=== PATIENT | female | born 1950 | race Caucasian/White ===

== ENCOUNTER 2019-11-03 06:40 | Emergency (ER) | payer MEDICARE, BC ==
[~2019-11-03] VITALS: Ht 154.9 cm; Wt 57.7 kg
[2019-11-03] MEDS ORDERED: aspirin 81mg tab.chew PO ONE (06:45)
[2019-11-03 07:32] LABS: BASOPHILS % (AUTO) 0.6 % (0-1); EOSINOPHILS # (AUTO) 0.4 X10'3 (0-0.9); EOSINOPHILS % (AUTO) 7.3 % (0-6); LYMPHOCYTES # (AUTO) 1.9 X10'3 (1.1-4.8); LYMPHOCYTES % (AUTO) 33.6 % (21-51); MEAN CORPUSCULAR HEMOGLOBIN 32.6 PG (27.0-31.0); MEAN CORPUSCULAR VOLUME 95.8 FL (78-98); MONOCYTES # (AUTO) 0.4 X10'3 (0-0.9); MONOCYTES % (AUTO) 6.7 % (2-12); NEUTROPHILS % (AUTO) 51.8 % (42-75); PLATELET COUNT 300 X10'3 (140-440); RED CELL DISTRIBUTION WIDTH 13.5 % (11.5-14.5); WHITE BLOOD COUNT 5.7 X10'3 (4.5-11.0)
[2019-11-03 07:47] LABS: ALANINE AMINOTRANSFERASE 31 U/L (12-78); ALBUMIN/GLOBULIN RATIO 1.3 (1.1-1.5); ALKALINE PHOSPHATASE 45 IU/L (46-116); ANION GAP 10 (8-16); ASPARTATE AMINO TRANSFERASE 18 U/L (10-37); BILIRUBIN,TOTAL 0.6 MG/DL (0.1-1.0); BLOOD UREA NITROGEN 9 MG/DL (7-18); BUN/CREATININE RATIO 13.4 (6.6-38.0); CALCIUM 10.4 MG/DL (8.5-10.1); CHLORIDE 104 MMOL/L (99-107); CREATININE 0.67 MG/DL (0.40-0.90); GLUCOSE 102 MG/DL (70-104); SODIUM 140 MMOL/L (135-145); TOTAL CARBON DIOXIDE 26.2 MMOL/L (24-32); eGFR 87 ML/MIN
[2019-11-03 07:55] LABS: MAGNESIUM 2.1 MG/DL (1.5-2.4)
[2019-11-03 08:08] VITALS: BP 152/82
== END 2019-11-03 10:39 | disposition home or self-care (01) ==
LOC: ER 06:40
DX: M54.9 Dorsalgia, unspecified (principal); M25.511 Pain in right shoulder; M25.512 Pain in left shoulder; G43.909 Migraine, unspecified, not intractable, without status migrainosus; I25.10 Atherosclerotic heart disease of native coronary artery without angina pectoris; I25.2 Old myocardial infarction; Z90.49 Acquired absence of other specified parts of digestive tract; Z90.710 Acquired absence of both cervix and uterus; Z88.5 Allergy status to narcotic agent; Z79.899 Other long term (current) drug therapy
CPT/HCPCS: 36415; 71045; 80053; 83735; 83880; 84484; 85025; 93005; 99285

== ENCOUNTER 2023-12-28 06:20 | Emergency (ER) | payer MEDICARE, BC ==
[~2023-12-28] VITALS: Ht 154.9 cm; Wt 56.8 kg
[2023-12-28 06:25] VITALS: TEMP 98.5
[2023-12-28 08:04] LABS: BASOPHILS % (AUTO) 0.4 % (0-1); EOSINOPHILS # (AUTO) 0.1 X10'3 (0-0.9); HEMATOCRIT 39.4 % (35.0-45.0); LYMPHOCYTES % (AUTO) 14.4 % (21-51); MEAN CORPUSCULAR HEMOGLOBIN 31.2 PG (27.0-31.0); MEAN CORPUSCULAR HGB CONC 32.9 g/dL (33.0-36.5); MEAN CORPUSCULAR VOLUME 94.8 FL (78-98); MEAN PLATELET VOLUME 7.9 FL (7.4-10.4); MONOCYTES # (AUTO) 0.3 X10'3 (0-0.9); MONOCYTES % (AUTO) 4.1 % (2-12); NEUTROPHILS # (AUTO) 5.5 X10'3 (1.8-7.7); NEUTROPHILS % (AUTO) 80.1 % (42-75); PLATELET COUNT 272 X10'3 (140-440); RED BLOOD COUNT 4.16 X10'6 (4.20-5.60); RED CELL DISTRIBUTION WIDTH 14.6 % (11.5-14.5); WHITE BLOOD COUNT 6.8 X10'3 (4.5-11.0)
[2023-12-28 08:14] LABS: APTT 26 SECONDS (22-32); PROTHROMBIN TIME 10.9 SECONDS (9.0-12.0)
[2023-12-28 08:21] LABS: ALBUMIN 3.6 G/DL (3.4-5.0); ANION GAP 7 (8-16); BLOOD UREA NITROGEN 12 MG/DL (7-18); BUN/CREATININE RATIO 16.2 (10.0-20.0); CALCIUM 8.9 MG/DL (8.5-10.1); CHLORIDE 105 MMOL/L (99-107); CREATININE 0.74 MG/DL (0.40-0.90); GLUCOSE 101 MG/DL (70-104); POTASSIUM 3.9 MMOL/L (3.5-5.1); PRO BRAIN NATRIURETIC PEPTIDE 83 PG/ML (0-450); SODIUM 138 MMOL/L (135-145); TOTAL CARBON DIOXIDE 26.4 MMOL/L (24-32); eCRCL 50 ML/MIN; eGFR 77 ML/MIN
[2023-12-28] MEDS ORDERED: iohexol 350MG/ML 100ml bottle IV ONE (08:27)
[2023-12-28] MEDS: normal saline 1000ml 1,000 ML IV SCH (08:54)
[2023-12-28 09:48] VITALS: BP 125/86; PULSE 67; RESP 17; O2SAT 98
== END 2023-12-28 09:50 | disposition home or self-care (01) ==
LOC: ER 06:20
DX: H53.8 Other visual disturbances (principal); I25.10 Atherosclerotic heart disease of native coronary artery without angina pectoris; I25.2 Old myocardial infarction; Z90.710 Acquired absence of both cervix and uterus; Z90.49 Acquired absence of other specified parts of digestive tract; Z88.5 Allergy status to narcotic agent
CPT/HCPCS: 36415; 70498; 80048; 83880; 85025; 85610; 85730; 93005; 93880; 96360; 99284; J7030; Q9967

== ENCOUNTER 2024-02-17 10:15 | Emergency (ER) | payer MEDICARE, BC ==
[~2024-02-17] VITALS: Ht 154.9 cm; Wt 60.0 kg
[2024-02-17 10:25] VITALS: TEMP 98
[2024-02-17 11:03] LABS: BILIRUBIN,URINE NEGATIVE (Neg); CLARITY,URINE CLEAR (Clear); COLOR,URINE YELLOW (Yellow); GLUCOSE, URINE NEGATIVE (Neg); KETONES,URINE NEGATIVE (Neg); LEUKOCYTE ESTERASE ,URINE NEGATIVE (Neg); NITRITES, URINE NEGATIVE (Neg); OCCULT BLOOD,URINE NEGATIVE (Neg); PH,URINE 7.5 (4.8-8.0); PROTEIN,URINE NEGATIVE (Neg); UROBILINOGEN,URINE 0.2 E.U/dL (0.2-1.0)
[2024-02-17 11:07] LABS: UA COLLECTION TYPE CLN CATCH MIDSTREAM
[2024-02-17 11:25] LABS: BASOPHILS % (AUTO) 0.6 % (0-1); EOSINOPHILS # (AUTO) 0.2 X10'3 (0-0.9); EOSINOPHILS % (AUTO) 2.2 % (0-6); HEMATOCRIT 44.4 % (35.0-45.0); HEMOGLOBIN 14.9 g/dl (12.0-16.0); LYMPHOCYTES # (AUTO) 1.9 X10'3 (1.1-4.8); LYMPHOCYTES % (AUTO) 22.5 % (21-51); MEAN CORPUSCULAR HEMOGLOBIN 32.2 PG (27.0-31.0); MEAN CORPUSCULAR HGB CONC 33.5 g/dL (33.0-36.5); MEAN CORPUSCULAR VOLUME 96.1 FL (78-98); MEAN PLATELET VOLUME 8.6 FL (7.4-10.4); MONOCYTES # (AUTO) 0.4 X10'3 (0-0.9); MONOCYTES % (AUTO) 4.5 % (2-12); NEUTROPHILS # (AUTO) 5.9 X10'3 (1.8-7.7); NEUTROPHILS % (AUTO) 70.2 % (42-75); PLATELET COUNT 352 X10'3 (140-440); RED BLOOD COUNT 4.62 X10'6 (4.20-5.60); RED CELL DISTRIBUTION WIDTH 14.9 % (11.5-14.5); WHITE BLOOD COUNT 8.4 X10'3 (4.5-11.0)
[2024-02-17 11:36] LABS: ALBUMIN 4.7 G/DL (3.4-5.0); ANION GAP 9 (8-16); BLOOD UREA NITROGEN 13 MG/DL (7-18); BUN/CREATININE RATIO 18.8 (10.0-20.0); CALCIUM 9.8 MG/DL (8.5-10.1); CHLORIDE 103 MMOL/L (99-107); CREATININE 0.69 MG/DL (0.40-0.90); GLUCOSE 91 MG/DL (70-104); LIPASE 62 U/L (16-77); POTASSIUM 3.8 MMOL/L (3.5-5.1); SODIUM 139 MMOL/L (135-145); eCRCL 53 ML/MIN; eGFR 83 ML/MIN
[2024-02-17] MEDS: LIDOcaine 2% Viscous 15ml cup MM PRN (12:28)
[2024-02-17] MEDS: sucralfate 1 gm tablet PO ONE (12:28)
[2024-02-17] MEDS: mag hydrox/Alum hydrox/simeth 30ml oral suspension PO ONE (12:28)
[2024-02-17] MEDS: pantoprazole 40mg Tablet.DR PO STA (12:28)
[2024-02-17] MEDS ORDERED: PANT-47 PO (12:58)
[2024-02-17] MEDS ORDERED: iohexol 300mg/ml 100ml inj. ONE (14:01)
[2024-02-17 14:04] VITALS: BP 138/89; PULSE 82; RESP 16; O2SAT 98
== END 2024-02-17 15:48 | disposition home or self-care (01) ==
LOC: ER 10:15
DX: R10.13 Epigastric pain (principal); G43.909 Migraine, unspecified, not intractable, without status migrainosus; I25.10 Atherosclerotic heart disease of native coronary artery without angina pectoris; I25.2 Old myocardial infarction; Z90.710 Acquired absence of both cervix and uterus; Z90.49 Acquired absence of other specified parts of digestive tract; Z88.5 Allergy status to narcotic agent; Z79.899 Other long term (current) drug therapy
CPT/HCPCS: 36415; 74177; 80048; 81003; 83690; 85025; 99285; J7030; Q9967